=== PATIENT | female | born 1955 ===

== ENCOUNTER 2022-05-19 05:55 | Day surgery (SDC) | payer OTHER | END 2022-05-19 09:20 | disposition home or self-care (01) | LOC: AMB-ENDOS 05:55 | PROVIDERS: ATTEND Surgery | DX: K62.89 Other specified diseases of anus and rectum (principal); K57.30 Diverticulosis of large intestine without perforation or abscess without bleeding; K64.4 Residual hemorrhoidal skin tags; Z20.822 Contact with and (suspected) exposure to COVID-19; I10 Essential (primary) hypertension ==